=== PATIENT | female | born 1970 | race African-American/Black ===

== ENCOUNTER 2019-05-23 18:58 | Inpatient (IN) | payer MEDICAID ==
[~2019-05-23] VITALS: Ht 162.6 cm; Wt 68.6 kg
[~2019-05-23 18:58] MED LIST: A20IH1 IH; ACET-784 PO; AUD NEB; BISA-72 PO; CARV12.530 PO; FAMO10VI2 IV; FURO20 PO; FURO20TA4 PO; HEPA500014 SQ; IPRNEB IH; LEVO750P7 IV; LISI10TA7 PO; LORA2VIA33 IV; MULT-1203 PO; ONDA4VIA22 IV; PRED10TA3 PO; PRED20 PO
[2019-05-23 19:33] LABS: HEMATOCRIT 35.4 % (36-46); HEMOGLOBIN 11.2 g/dL (12.0-16.0); MEAN CORPUSCULAR HEMOGLOBIN 27.3 pg (26.0-34.0); MEAN CORPUSCULAR HGB CONC 31.5 G/dL (31.0-37.0); MEAN CORPUSCULAR VOLUME 87 fL (80-100); PLATELET COUNT (AUTO) 267 K/uL (150-450); RED BLOOD CELL COUNT(AUTO) 4.09 MIL/uL (4.00-5.20); RED CELL DISTRIBUTION WIDTH 17.8 % (11.5-14.5)
[2019-05-23 19:41] LABS: CALCIUM, TOTAL 8.9 mg/dL (8.8-10.5); CREATININE 1.29 mg/dL (0.60-1.30); POTASSIUM 3.6 mmol/L (3.5-5.1)
[2019-05-23 19:47] LABS: ALBUMIN 2.5 g/dL (3.4-5.0); BILIRUBIN,TOTAL 2.5 mg/dL (0.1-1.0); TOTAL PROTEIN, SERUM 7.6 g/dL (6.4-8.2)
[2019-05-23 20:30] LABS: BAND NEUTROPHILS % (MANUAL) 0 % (0-5)
[2019-05-23 20:31] LABS: BASOPHILS % (MANUAL) 1 % (0-2); EOSINOPHILS % (MANUAL) 1 % (1-6); LYMPHOCYTES % (MANUAL) 26 % (22-44); MONOCYTES % (MANUAL) 10 % (2-9); SEGMENTED NEUTROPHILS % 62 % (40-70)
[2019-05-23 20:33] LABS: PLATELET MORPHOLOGY COMMENT LARGE PLTS PRESENT
[2019-05-23] MEDS ORDERED: NITROGLYCERIN 50 MG/D5% WATER 250 ML IV PRN (22:15)
[2019-05-23] MEDS ORDERED: ASPIRIN 81 MG CHEWABLE TABLET PO ONE (22:15)
[2019-05-23] MEDS ORDERED: ACETAMINOPHEN 325 MG TABLET PO PRN (22:15)
[2019-05-23] MEDS ORDERED: 0.9% SODIUM CHLORIDE 10 ML SYRINGE IVP PRN (22:15)
[2019-05-23] MEDS ORDERED: ONDANSETRON HCL 4 MG/2 ML VIAL IVP PRN (22:15)
[2019-05-23] MEDS ORDERED: FUROSEMIDE 40 MG/4 ML VIAL IVP ONE (22:15)
[2019-05-23] MEDS ORDERED: IOVERSOL 320 MG/ML 100 ML VIAL ONE (22:33)
[2019-05-23] MEDS ORDERED: SODIUM CHLORIDE 0.9% 100 ML ONE (22:33)
[2019-05-24] VITALS (9 sets, daily range): BP systolic 92–160; BP diastolic 54–127
[2019-05-24] MEDS ORDERED: ALBUMIN HUMAN 25%-25GM/100ML 100 ML IV ONE (02:30)
[2019-05-24] MEDS ORDERED: ALBUTEROL SULFATE 2.5 MG/0.5 ML NEB SOLUTION NEB PRN (02:30)
[2019-05-24] MEDS ORDERED: 0.9% SODIUM CHLORIDE 10 ML SYRINGE IVP PRN (02:45)
[2019-05-24] MEDS ORDERED: ACETAMINOPHEN 325 MG TABLET PO PRN (02:45)
[2019-05-24] MEDS ORDERED: ASPIRIN 81 MG CHEWABLE TABLET PO ONE (02:45)
[2019-05-24] MEDS ORDERED: OxyCODONE HCL/ACETAMINOPHEN 5-325 MG TABLET PO PRN (02:45)
[2019-05-24] MEDS ORDERED: ONDANSETRON HCL 4 MG/2 ML VIAL IVP PRN (02:45)
[2019-05-24] MEDS ORDERED: MAGNESIUM HYDROXIDE SUSPENSION 30 ML UDCUP PO PRN (02:45)
[2019-05-24] MEDS: CARVEDILOL 12.5 MG TABLET PO SCH ×3 (02:51→21:00)
[2019-05-24] MEDS ORDERED: PNEUMOCOCCAL VACCINE POLYVALENT 0.5 ML VIAL [PPSV23] IM ONE (03:30)
[2019-05-24] MEDS ORDERED: 0.9% SODIUM CHLORIDE 5 ML NEB SOLUTION NEB ONE (04:44)
[2019-05-24] MEDS: ALBUTEROL SULFATE 2.5 MG/0.5 ML NEB SOLUTION NEB SCH ×3 (08:38→20:06)
[2019-05-24] MEDS: IPRATROPIUM BROMIDE 0.5 MG/2.5 ML NEB SOLUTION NEB SCH ×3 (08:38→20:06)
[2019-05-24] MEDS: DOCUSATE SODIUM 100 MG CAPSULE PO SCH ×2 (09:00→21:00)
[2019-05-24] MEDS ORDERED: FUROSEMIDE 40 MG/4 ML VIAL IVP SCH (09:00)
[2019-05-24] MEDS ORDERED: LISINOPRIL 10 MG TABLET PO SCH (09:00)
[2019-05-24] MEDS ORDERED: HydrALAZINE HCL 20 MG/ML VIAL IVP PRN (09:15)
[2019-05-24] MEDS: FAMOTIDINE 10 MG/ML 2 ML VIAL IVP SCH (09:35)
[2019-05-24 13:00] LABS: AMPHET/METH SCREEN,URINE NEGATIVE (NEGATIVE); BARBITURATE SCREEN, URINE NEGATIVE (NEGATIVE); BENZODIAZEPINES SCREEN,URINE NEGATIVE (NEGATIVE); CANNABINOID SCREEN,URINE NEGATIVE (NEGATIVE); COCAINE SCREEN,URINE NEGATIVE (NEGATIVE); METHADONE SCREEN, URINE NEGATIVE (NEGATIVE); OPIATE SCREEN,URINE NEGATIVE (NEGATIVE)
[2019-05-24 13:09] LABS: PHENCYCLIDINE SCREEN,URINE NEGATIVE (NEGATIVE)
[2019-05-24] MEDS: FUROSEMIDE 40 MG/4 ML VIAL IVP SCH ×2 (16:20→22:57)
[2019-05-24] MEDS: OxyCODONE HCL/ACETAMINOPHEN 5-325 MG TABLET PO PRN ×2 (18:22→22:57)
[2019-05-25] VITALS (7 sets, daily range): BP systolic 98–138; BP diastolic 54–102
[2019-05-25] MEDS: IPRATROPIUM BROMIDE 0.5 MG/2.5 ML NEB SOLUTION NEB SCH ×4 (02:24→19:49)
[2019-05-25] MEDS: ALBUTEROL SULFATE 2.5 MG/0.5 ML NEB SOLUTION NEB SCH ×4 (02:24→19:49)
[2019-05-25 04:57] LABS: BASOPHILS % (AUTO) 0.4 % (0.0-2.0); HEMOGLOBIN 10.3 g/dL (12.0-16.0); LYMPHOCYTES # (AUTO) 1.4 K/uL (1.0-4.8); LYMPHOCYTES % (AUTO) 22.9 % (22.0-44.0); MEAN CORPUSCULAR HEMOGLOBIN 27.9 pg (26.0-34.0); MEAN CORPUSCULAR VOLUME 87 fL (80-100); MONOCYTES # (AUTO) 0.5 K/uL (0.1-1.0); MONOCYTES % (AUTO) 8.2 % (2.0-9.0); NEUTROPHILS # (AUTO) 4.1 K/uL (1.8-7.7); NEUTROPHILS % (AUTO) 66.5 % (40.0-70.0); PLATELET COUNT (AUTO) 205 K/uL (150-450); RED BLOOD CELL COUNT(AUTO) 3.68 MIL/uL (4.00-5.20); RED CELL DISTRIBUTION WIDTH 17.5 % (11.5-14.5)
[2019-05-25 05:08] LABS: ANION GAP 6 mmol/L (8-16); CALCIUM, TOTAL 8.6 mg/dL (8.8-10.5); CARBON DIOXIDE 30 mmol/L (22-29); CHLORIDE 96 mmol/L (98-107); CREATININE 1.03 mg/dL (0.60-1.30); GLOMERULAR FILTR. RATE CALC > 60 mL/min (>60); GLUCOSE,RANDOM 81 mg/dL (70-110); POTASSIUM 3.4 mmol/L (3.5-5.1); SODIUM SERUM 132 mmol/L (136-145); UREA NITROGEN, BLOOD 27 mg/dL (7-18)
[2019-05-25] MEDS: CARVEDILOL 12.5 MG TABLET PO SCH ×2 (07:42→21:13)
[2019-05-25] MEDS: FUROSEMIDE 40 MG/4 ML VIAL IVP SCH ×2 (07:42→17:01)
[2019-05-25] MEDS: FAMOTIDINE 10 MG/ML 2 ML VIAL IVP SCH (07:42)
[2019-05-25] MEDS: DOCUSATE SODIUM 100 MG CAPSULE PO SCH ×2 (07:43→21:13)
[2019-05-25] MEDS: LISINOPRIL 20 MG TABLET PO SCH (07:43)
[2019-05-25] MEDS ORDERED: POTASSIUM CHL 10 MEQ/WATER 50 ML IV PRN (13:30)
[2019-05-25] MEDS ORDERED: POTASSIUM CHLORIDE 10% 40 MEQ/30 ML LIQUID UDCUP PO PRN (13:30)
[2019-05-25] MEDS ORDERED: POTASSIUM CHLORIDE 20 MEQ ER TABLET PO PRN (13:30)
[2019-05-25 14:05] LABS: INR 1.4 (0.9-1.1); PROTHROMBIN TIME 14.6 SEC (9.4-11.6)
[2019-05-25] MEDS: SPIRONOLACTONE 50 MG TABLET PO SCH (21:13)
[2019-05-26] MEDS: FUROSEMIDE 40 MG/4 ML VIAL IVP SCH (00:11)
[2019-05-26] MEDS: ALBUTEROL SULFATE 2.5 MG/0.5 ML NEB SOLUTION NEB SCH ×4 (02:25→20:09)
[2019-05-26] MEDS: IPRATROPIUM BROMIDE 0.5 MG/2.5 ML NEB SOLUTION NEB SCH ×4 (02:25→20:09)
[2019-05-26 03:49] VITALS: BP 97/52
[2019-05-26 06:56] LABS: BASOPHILS % (AUTO) 0.4 % (0.0-2.0); EOSINOPHILS % (AUTO) 0.6 % (1.0-6.0); HEMATOCRIT 32.2 % (36-46); HEMOGLOBIN 10.3 g/dL (12.0-16.0); LYMPHOCYTES # (AUTO) 0.8 K/uL (1.0-4.8); LYMPHOCYTES % (AUTO) 11.7 % (22.0-44.0); MEAN CORPUSCULAR HEMOGLOBIN 27.5 pg (26.0-34.0); MEAN CORPUSCULAR HGB CONC 31.9 G/dL (31.0-37.0); MEAN CORPUSCULAR VOLUME 86 fL (80-100); MONOCYTES # (AUTO) 0.5 K/uL (0.1-1.0); MONOCYTES % (AUTO) 7.9 % (2.0-9.0); NEUTROPHILS # (AUTO) 5.3 K/uL (1.8-7.7); NEUTROPHILS % (AUTO) 79.4 % (40.0-70.0); PLATELET COUNT (AUTO) 212 K/uL (150-450); RED BLOOD CELL COUNT(AUTO) 3.73 MIL/uL (4.00-5.20); RED CELL DISTRIBUTION WIDTH 17.4 % (11.5-14.5)
[2019-05-26 07:10] VITALS: BP 107/62
[2019-05-26 07:29] LABS: ANION GAP 9 mmol/L (8-16); CARBON DIOXIDE 30 mmol/L (22-29); CHLORIDE 96 mmol/L (98-107); CREATININE 1.03 mg/dL (0.60-1.30); GLOMERULAR FILTR. RATE CALC > 60 mL/min (>60); GLUCOSE,RANDOM 100 mg/dL (70-110); POTASSIUM 3.2 mmol/L (3.5-5.1); SODIUM SERUM 135 mmol/L (136-145); UREA NITROGEN, BLOOD 28 mg/dL (7-18)
[2019-05-26 11:07] LABS: SPECIMENTYPE,BODY FLUID THORACENTESIS
[2019-05-26] MEDS: DOCUSATE SODIUM 100 MG CAPSULE PO SCH ×2 (11:20→20:40)
[2019-05-26] MEDS: FAMOTIDINE 10 MG/ML 2 ML VIAL IVP SCH (11:22)
[2019-05-26] MEDS: SPIRONOLACTONE 50 MG TABLET PO SCH ×2 (11:22→21:00)
[2019-05-26] MEDS: CARVEDILOL 12.5 MG TABLET PO SCH ×2 (11:22→21:00)
[2019-05-26] MEDS: LISINOPRIL 20 MG TABLET PO SCH (11:22)
[2019-05-26 12:00] VITALS: BP 104/66
[2019-05-26 12:59] LABS: APPEARANCE,SPUN,BODY FLUID CLEAR (CLEAR); APPEARANCE,UNSPUN,BODY FLUID CLOUDY (CLEAR); COLOR,BODY FLUID YELLOW (LT YELLOW); TOTAL VOLUME,BODY FLUID 430 mL; WBC, BODY FLUID 62.5 /cu. mm.
[2019-05-26 13:00] LABS: BASOPHILS,BODY FLUID 0 %; EOSINOPHILS,BF (ANAL) 0 %; MONOCYTES,BODY FLUID 3 %; OTHER CELLS,BODY FLUID 3
[2019-05-26 13:30] LABS: NEUTROPHILS,BODY FLUID 8 %
[2019-05-26 13:31] LABS: LYMPHOCYTES,BODY FLUID 86 %
[2019-05-26 15:08] VITALS: BP 94/54
[2019-05-26] MEDS ORDERED: POTASSIUM CHLORIDE 20 MEQ ER TABLET PO PRN ×2 (18:45)
[2019-05-26] MEDS ORDERED: POTASSIUM CHL 10 MEQ/WATER 50 ML IV PRN (18:45)
[2019-05-26 20:02] VITALS: BP 95/56
[2019-05-27 00:04] VITALS: BP 98/62
[2019-05-27] MEDS: ALBUTEROL SULFATE 2.5 MG/0.5 ML NEB SOLUTION NEB SCH ×3 (02:41→14:00)
[2019-05-27] MEDS: IPRATROPIUM BROMIDE 0.5 MG/2.5 ML NEB SOLUTION NEB SCH ×3 (02:41→14:00)
[2019-05-27 04:24] VITALS: BP 103/70
[2019-05-27 07:00] LABS: ANION GAP 5 mmol/L (8-16); CARBON DIOXIDE 30 mmol/L (22-29); CHLORIDE 99 mmol/L (98-107); CREATININE 0.96 mg/dL (0.60-1.30); GLOMERULAR FILTR. RATE CALC > 60 mL/min (>60); GLUCOSE,RANDOM 148 mg/dL (70-110); POTASSIUM 3.8 mmol/L (3.5-5.1); SODIUM SERUM 134 mmol/L (136-145); UREA NITROGEN, BLOOD 20 mg/dL (7-18)
[2019-05-27 07:48] VITALS: BP 104/73
[2019-05-27] MEDS ORDERED: FUROSEMIDE 40 MG/4 ML VIAL IVP SCH (08:00)
[2019-05-27 08:49] VITALS: BP 115/74
[2019-05-27] MEDS: DOCUSATE SODIUM 100 MG CAPSULE PO SCH (09:00)
[2019-05-27] MEDS: SPIRONOLACTONE 50 MG TABLET PO SCH (09:49)
[2019-05-27] MEDS: CARVEDILOL 12.5 MG TABLET PO SCH (09:49)
[2019-05-27] MEDS: FAMOTIDINE 10 MG/ML 2 ML VIAL IVP SCH (09:50)
[2019-05-27 11:51] VITALS: BP 106/62
[2019-05-27] MEDS ORDERED: SPIR50 PO (11:53)
[2019-05-27] MEDS: LISINOPRIL 20 MG TABLET PO SCH (13:29)
[2019-05-27 13:30] VITALS: BP 143/67
[2019-05-27] MEDS ORDERED: MUPIROCIN CALCIUM 2% 22 GM OINTMENT NASAL SCH (13:45)
== END 2019-05-27 15:30 | disposition home or self-care (01) | DRG 194 ==
LOC: EMS 18:59 → ICU 05-24 01:30 → 5N 05-25 15:25
PROVIDERS: ADMIT Internal Medicine; ATTEND Internal Medicine
PROC: 3E0234Z Introduction of Serum, Toxoid and Vaccine into Muscle, Percutaneous Approach (ICD-10-PCS; principal; 2019-05-24)
PROC: 0W9930Z Drainage of Right Pleural Cavity with Drainage Device, Percutaneous Approach (ICD-10-PCS; 2019-05-26)
DX: I13.0 Hypertensive heart and chronic kidney disease with heart failure and stage 1 through stage 4 chronic kidney disease, or unspecified chronic kidney disease (principal); J91.8 Pleural effusion in other conditions classified elsewhere; D46.22 Refractory anemia with excess of blasts 2; E44.0 Moderate protein-calorie malnutrition; R18.8 Other ascites; E87.1 Hypo-osmolality and hyponatremia; I42.0 Dilated cardiomyopathy; I50.23 Acute on chronic systolic (congestive) heart failure; I42.7 Cardiomyopathy due to drug and external agent; T43.625A Adverse effect of amphetamines, initial encounter; E87.6 Hypokalemia; I34.0 Nonrheumatic mitral (valve) insufficiency; R09.02 Hypoxemia; R00.0 Tachycardia, unspecified; R06.03 Acute respiratory distress; K74.60 Unspecified cirrhosis of liver; F17.210 Nicotine dependence, cigarettes, uncomplicated; J45.909 Unspecified asthma, uncomplicated; N18.9 Chronic kidney disease, unspecified; Z79.899 Other long term (current) drug therapy; I25.2 Old myocardial infarction; Z80.3 Family history of malignant neoplasm of breast; Z98.51 Tubal ligation status; Z23 Encounter for immunization; Z68.26 Body mass index [BMI] 26.0-26.9, adult; Z88.0 Allergy status to penicillin; Y92.89 Other specified places as the place of occurrence of the external cause
CPT/HCPCS: 32555; 74177; 76942; 80307; 82465; 82945; 83615; 83986; 84132; 84157; 87015; 87070; 87081; 87101; 87205; 87206; 89051; 90732; 93005; 93306; 94640; 99291; G0378; J1940; J3490; J7050; P9046

== ENCOUNTER 2019-07-09 23:16 | Inpatient (IN) | payer MEDICAID ==
[~2019-07-09] VITALS: Ht 170.2 cm; Wt 70.0 kg
[~2019-07-09 23:16] MED LIST changes: -A20IH1 IH; -ACET-784 PO; -BISA-72 PO; -FAMO10VI2 IV; -FURO20TA4 PO; -HEPA500014 SQ; -LEVO750P7 IV; -LORA2VIA33 IV; -MULT-1203 PO; -ONDA4VIA22 IV; -PRED10TA3 PO; -PRED20 PO; +SPIR50 PO
[2019-07-09] MEDS ORDERED: 0.9% SODIUM CHLORIDE 5 ML NEB SOLUTION NEB ONE (23:28)
[2019-07-09] MEDS ORDERED: MethylPREDNISolone SOD SUCC 125 MG/2 ML VIAL ONE (23:28)
[2019-07-09] MEDS ORDERED: LORazepam 2 MG/ML VIAL IVP ONE (23:30)
[2019-07-09] MEDS ORDERED: ALBUTEROL SULFATE 5 MG/ML 20 ML NEB SOLN [BULK] NEB ONE (23:30)
[2019-07-09] MEDS ORDERED: SUCCINYLCHOLINE CHLORIDE 20 MG/ML 10 ML VIAL ONE (23:41)
[2019-07-09] MEDS ORDERED: RAPID SEQUENCE KIT [RSI] 1 EACH KIT ONE (23:41)
[2019-07-09 23:55] LABS: ABG A-A DIFF O2 598.3 mmHg (10-20.0); ABG BASE EXCESS -11.6 mmol/L (-2.0-3.0); ABG CARBOXYHEMOGLOBIN 1.2 % (0.0-1.5); ABG HCO3 16.6 mmol/L (22.0-26.0); ABG METHEMOGLOBIN 0.3 % (0.0-1.5); ABG OXYGEN CONTENT 16.3 mL/dL (15.0-23.0); ABG OXYGEN SATURATION 96.1 % (95.0-98.0); ABG OXYHEMOGLOBIN 94.7 % (94.0-100.0); ABG PCO2 24 mmHg (35-45); ABG PH 7.376 (7.35-7.450); ABG TOTAL HEMOGLOBIN 12.2 G/dL (12.0-18.0); PO2, ARTERIAL BG 91.2 mmHg (88.0-96.0); SOURCE, BLOOD GAS ARTERIAL; TEMPERATURE, FAHRENHEIT, BG 98.5 FAHREN (96.0-98.6)
[2019-07-09 23:56] LABS: O2 DEVICE,BLOOD GAS BIPAP (ROOM AIR); SITE, BLOOD GAS RT RADIAL
[2019-07-10] MEDS ORDERED: SODIUM CHLORIDE 0.9% 1,000 ML ONE (00:19)
[2019-07-10] MEDS ORDERED: PROPOFOL 1000 MG/ISO-OSM 100 ML IV ONE (00:29)
[2019-07-10 00:39] LABS: BASOPHILS % (AUTO) 0.3 % (0.0-2.0); EOSINOPHILS % (AUTO) 0 % (1.0-6.0); HEMATOCRIT 36.1 % (36-46); HEMOGLOBIN 11.4 g/dL (12.0-16.0); LYMPHOCYTES # (AUTO) 1.4 K/uL (1.0-4.8); LYMPHOCYTES % (AUTO) 17.2 % (22.0-44.0); MEAN CORPUSCULAR HEMOGLOBIN 26.5 pg (26.0-34.0); MEAN CORPUSCULAR HGB CONC 31.6 G/dL (31.0-37.0); MEAN CORPUSCULAR VOLUME 84 fL (80-100); MONOCYTES # (AUTO) 0.6 K/uL (0.1-1.0); NEUTROPHILS % (AUTO) 74.5 % (40.0-70.0); PLATELET COUNT (AUTO) 223 K/uL (150-450); RED CELL DISTRIBUTION WIDTH 18.9 % (11.5-14.5)
[2019-07-10] MEDS ORDERED: LEVOFLOXACIN 500 MG/D5% WATER 100 ML IV ONE (00:45)
[2019-07-10 00:51] LABS: INR 1.9 (0.9-1.1); PROTHROMBIN TIME 19.4 SEC (9.4-11.6)
[2019-07-10 00:57] LABS: APPEARANCE,URINE CLOUDY (CLEAR); BILIRUBIN,URINE PRELIM. POSITIVE (NEGATIVE); GLUCOSE, URINE (UA) NEGATIVE (NEGATIVE); KETONES,URINE NEGATIVE (NEGATIVE); LEUKOCYTE ESTERASE ,URINE NEGATIVE (NEGATIVE); NITRATE,URINE NEGATIVE (NEGATIVE); OCCULT BLOOD,URINE NEGATIVE (NEGATIVE); PROTEIN,URINE SEE CONFIRM (NEGATIVE)
[2019-07-10] MEDS ORDERED: PROPOFOL 1000 MG/ISO-OSM 100 ML IV PRN (01:00)
[2019-07-10] MEDS ORDERED: MethylPREDNISolone SOD SUCC 125 MG/2 ML VIAL IVP ONE (01:00)
[2019-07-10] MEDS ORDERED: FUROSEMIDE 40 MG/4 ML VIAL IVP ONE ×3 (01:00→04:15)
[2019-07-10 01:01] LABS: ALANINE AMINOTRANSFERASE 36 U/L (12-78); ALBUMIN 2.6 g/dL (3.4-5.0); ALKALINE PHOSPHATASE 226 U/L (46-116); ANION GAP 17 mmol/L (8-16); ASPARTATE AMINOTRANSFERASE 64 U/L (15-37); BILIRUBIN,TOTAL 3.7 mg/dL (0.1-1.0); CALCIUM, TOTAL 8.7 mg/dL (8.8-10.5); CARBON DIOXIDE 20 mmol/L (22-29); CHLORIDE 97 mmol/L (98-107); CREATININE 1.83 mg/dL (0.60-1.30); GLOMERULAR FILTR. RATE CALC 36 mL/min (>60); HCG,QUANTITATIVE < 1 mIU/mL (0-6); SODIUM SERUM 134 mmol/L (136-145); TOTAL PROTEIN, SERUM 7.9 g/dL (6.4-8.2); UREA NITROGEN, BLOOD 44 mg/dL (7-18)
[2019-07-10 01:02] LABS: LACTIC ACID 8.7 mmol/L (0.4-2.0)
[2019-07-10 01:03] LABS: B-TYPE NATRIURETIC PEPTIDE > 5000 pg/mL (0-100); GLUCOSE,RANDOM 38 mg/dL (70-110)
[2019-07-10 01:07] LABS: SULFOSALICYLIC ACID,URINE 1+ (Negative)
[2019-07-10 01:07] LABS: SOURCE, BLOOD GAS ARTERIAL; TEMPERATURE, FAHRENHEIT, BG 98.6 FAHREN (96.0-98.6)
[2019-07-10 01:08] LABS: AMORPHOUS SEDIMENT,UR Few /LPF (None Seen); BACTERIA,URINE Few /HPF (None Seen); RBC,URINE 0-2 /HPF (0-2); SQUAMOUS EPITHELIAL CELL,UR Few /LPF (None Seen)
[2019-07-10] MEDS ORDERED: DEXTROSE 50%-WATER 25 GM/50 ML SYRINGE IVP ONE (01:15)
[2019-07-10] MEDS ORDERED: SODIUM CHLORIDE 0.9% 1,000 ML IV ONE ×2 (01:15)
[2019-07-10] MEDS ORDERED: 0.9% SODIUM CHLORIDE 5 ML NEB SOLUTION NEB ONE (01:21)
[2019-07-10 01:28] LABS: ABG CARBOXYHEMOGLOBIN 0.8 % (0.0-1.5); ABG HCO3 12.9 mmol/L (22.0-26.0); ABG METHEMOGLOBIN 0.1 % (0.0-1.5); ABG OXYGEN CONTENT 11.5 mL/dL (15.0-23.0); ABG OXYHEMOGLOBIN 70.3 % (94.0-100.0); ABG PCO2 47 mmHg (35-45); ABG TOTAL HEMOGLOBIN 11.6 G/dL (12.0-18.0); PO2, ARTERIAL BG 55.7 mmHg (88.0-96.0)
[2019-07-10] MEDS ORDERED: DEXTROSE 5%-0.9% SODIUM CHL 1,000 ML IV ONE ×2 (01:30→02:30)
[2019-07-10 01:32] LABS: ABG PH 7.107 (7.35-7.450)
[2019-07-10] MEDS ORDERED: SODIUM BICARBONATE [ADULT] 8.4% 50 MEQ/50 ML SYRINGE IVP ONE ×4 (01:32→19:06)
[2019-07-10 01:33] LABS: ABG OXYGEN SATURATION 70.9 % (95.0-98.0); O2 DEVICE,BLOOD GAS VENTILATOR (ROOM AIR); PEEP,BG 5 cm H2O; SITE, BLOOD GAS RT FEMORAL; VT, ABG 400 ml
[2019-07-10 01:48] LABS: GLUCOSE,POINT OF CARE 128 MG/DL (70-110)
[2019-07-10 01:48] LABS: GLUCOSE,POINT OF CARE 19 MG/DL (70-110)
[2019-07-10] MEDS ORDERED: NOREPINEPHRINE 4 MG/D5%-WATER 250 ML IV ONE (01:55)
[2019-07-10] MEDS ORDERED: AZITHROMYCIN 500 MG/NS 250 ML IV ONE (02:15)
[2019-07-10] MEDS ORDERED: NOREPINEPHRINE 4 MG/D5%-WATER 250 ML IV PRN ×2 (03:24→07:05)
[2019-07-10] MEDS: DOPamine HCL 400 MG/D5%-WATER 250 ML IV PRN ×2 (03:30→09:55)
[2019-07-10 03:55] LABS: GLUCOSE,POINT OF CARE 153 MG/DL (70-110)
[2019-07-10] MEDS ORDERED: MIDAZOLAM HCL 5 MG/ML VIAL ONE (04:32)
[2019-07-10 04:39] LABS: CALCIUM, TOTAL 7.9 mg/dL (8.8-10.5); CREATININE 1.91 mg/dL (0.60-1.30); POTASSIUM 3.9 mmol/L (3.5-5.1)
[2019-07-10 04:54] LABS: LACTIC ACID 8.5 mmol/L (0.4-2.0)
[2019-07-10] MEDS ORDERED: CALCIUM GLUCONATE 100 MG/ML 10 ML IVP ONE ×2 (05:14→05:15)
[2019-07-10] MEDS ORDERED: DEXTROSE 5%-WATER 50 ML IV ONE (05:15)
[2019-07-10] MEDS ORDERED: VANCOMYCIN HCL 1 GM/D5% WATER 200 ML IV ONE ×2 (05:15→19:00)
[2019-07-10 05:38] LABS: ABG A-A DIFF O2 461.8 mmHg (10-20.0); ABG BASE EXCESS -14.9 mmol/L (-2.0-3.0); ABG CARBOXYHEMOGLOBIN 0.3 % (0.0-1.5); ABG METHEMOGLOBIN 0.4 % (0.0-1.5); ABG OXYGEN CONTENT 16.7 mL/dL (15.0-23.0); ABG OXYGEN SATURATION 99.4 % (95.0-98.0); ABG OXYHEMOGLOBIN 98.7 % (94.0-100.0); ABG PCO2 29 mmHg (35-45); ABG PH 7.247 (7.35-7.450); ABG TOTAL HEMOGLOBIN 11.7 G/dL (12.0-18.0); PO2, ARTERIAL BG 222.2 mmHg (88.0-96.0); SOURCE, BLOOD GAS ARTERIAL; TEMPERATURE, FAHRENHEIT, BG 98.6 FAHREN (96.0-98.6)
[2019-07-10 05:39] LABS: O2 DEVICE,BLOOD GAS VENTILATOR (ROOM AIR); PEEP,BG 10 cm H2O; SITE, BLOOD GAS ARTERIAL LINE; VT, ABG 400 ml
[2019-07-10] MEDS ORDERED: MIDAZOLAM HCL 5 MG/ML VIAL IVP ONE (06:30)
[2019-07-10] MEDS ORDERED: PHENYLEPHRINE 200 MG/D5%-WATER 250 ML IV PRN ×2 (06:39→18:15)
[2019-07-10] MEDS ORDERED: MAGNESIUM HYDROXIDE SUSPENSION 30 ML UDCUP PO PRN (07:15)
[2019-07-10] MEDS ORDERED: HYDROCODONE/ACETAMINOPHEN 5-325 MG TABLET PO PRN (07:15)
[2019-07-10] MEDS ORDERED: ALBUTEROL SULFATE 2.5 MG/0.5 ML NEB SOLUTION NEB PRN (07:15)
[2019-07-10] MEDS ORDERED: ZOLPIDEM TARTRATE 5 MG TABLET PO PRN (07:15)
[2019-07-10] MEDS ORDERED: MORPHINE SULFATE 2 MG/ML SYRINGE IVP PRN (07:15)
[2019-07-10] MEDS ORDERED: BISACODYL 10 MG RECTAL RECTAL SUPPOSITORY PR PRN (07:15)
[2019-07-10] MEDS ORDERED: ACETAMINOPHEN 325 MG TABLET PO PRN (07:15)
[2019-07-10] MEDS ORDERED: ONDANSETRON HCL 4 MG/2 ML VIAL IVP PRN (07:15)
[2019-07-10] MEDS ORDERED: CLINDAMYCIN 600 MG/D5% WATER 50 ML IV ONE (07:15)
[2019-07-10] MEDS ORDERED: IPRATROPIUM BROMIDE 0.5 MG/2.5 ML NEB SOLUTION NEB PRN (07:15)
[2019-07-10 07:43] LABS: GLUCOSE,POINT OF CARE 114 MG/DL (70-110)
[2019-07-10 08:00] VITALS: BP 89/66
[2019-07-10] MEDS: IPRATROPIUM BROMIDE 0.5 MG/2.5 ML NEB SOLUTION NEB SCH ×2 (08:00→13:57)
[2019-07-10] MEDS: ALBUTEROL SULFATE 2.5 MG/0.5 ML NEB SOLUTION NEB SCH ×2 (08:00→13:57)
[2019-07-10] MEDS ORDERED: VASOPRESSIN 40 UNITS in DEXTROSE 5%-WATER 98 ML IV PRN (08:37)
[2019-07-10] MEDS ORDERED: GuaiFENesin SR 600 MG ER TABLET PO SCH (09:00)
[2019-07-10] MEDS ORDERED: FUROSEMIDE 20 MG/2 ML VIAL IVP SCH (09:00)
[2019-07-10] MEDS ORDERED: PANTOPRAZOLE SODIUM 40 MG DR TABLET PO SCH (09:00)
[2019-07-10] MEDS ORDERED: BENZONATATE 100 MG CAPSULE PO SCH (09:00)
[2019-07-10] MEDS ORDERED: DOCUSATE SODIUM 100 MG CAPSULE PO SCH (09:00)
[2019-07-10] MEDS ORDERED: NOREPINEPHRINE BITARTRATE 16 MG in DEXTROSE 5%-WATER 234 ML IV PRN (09:30)
[2019-07-10 09:44] LABS: AMPHET/METH SCREEN,URINE POSITIVE (NEGATIVE); BARBITURATE SCREEN, URINE NEGATIVE (NEGATIVE); BENZODIAZEPINES SCREEN,URINE NEGATIVE (NEGATIVE); CANNABINOID SCREEN,URINE POSITIVE (NEGATIVE); COCAINE SCREEN,URINE NEGATIVE (NEGATIVE); METHADONE SCREEN, URINE NEGATIVE (NEGATIVE); OPIATE SCREEN,URINE POSITIVE (NEGATIVE); PHENCYCLIDINE SCREEN,URINE NEGATIVE (NEGATIVE)
[2019-07-10] MEDS ORDERED: *CLINICAL-CEFEPIME DOSING CLINICAL SCH (10:45)
[2019-07-10] MEDS: HEPARIN SODIUM,PORCINE 5,000 UNITS/ML VIAL SQ SCH ×2 (11:09→16:00)
[2019-07-10 12:00] VITALS: BP 86/70
[2019-07-10] MEDS ORDERED: MethylPREDNISolone SOD SUCC 125 MG/2 ML VIAL IVP SCH (12:00)
[2019-07-10] MEDS ORDERED: VANCOMYCIN HCL 1.5 GM in DEXTROSE 5%-WATER 250 ML IV ONE (12:00)
[2019-07-10] MEDS ORDERED: CEFEPIME HCL 2 GM in DEXTROSE 5%-WATER 50 ML IV SCH (12:00)
[2019-07-10] MEDS ORDERED: ETOMIDATE 2 MG/ML 10 ML VIAL IV ONE (12:15)
[2019-07-10] MEDS ORDERED: VECURONIUM BROMIDE 10 MG/VIAL IV ONE (12:15)
[2019-07-10] MEDS ORDERED: LIDOCAINE/PF 2% 5 ML SYRINGE IVP ONE (12:15)
[2019-07-10] MEDS: HYDROCORTISONE SOD SUCC 100 MG/2 ML VIAL IVP SCH ×2 (12:37→17:44)
[2019-07-10] MEDS: MetroNIDAZOLE 500 MG/NACL 100 ML IV SCH ×2 (12:37→17:44)
[2019-07-10 14:38] LABS: ABG A-A DIFF O2 624.8 mmHg (10-20.0); ABG BASE EXCESS -27.8 mmol/L (-2.0-3.0); ABG CARBOXYHEMOGLOBIN 0.5 % (0.0-1.5); ABG METHEMOGLOBIN 0.3 % (0.0-1.5); ABG OXYGEN CONTENT 8.8 mL/dL (15.0-23.0); ABG OXYHEMOGLOBIN 52.2 % (94.0-100.0); ABG PCO2 45 mmHg (35-45); ABG TOTAL HEMOGLOBIN 11.9 G/dL (12.0-18.0); PO2, ARTERIAL BG 44.1 mmHg (88.0-96.0); SOURCE, BLOOD GAS ARTERIAL; TEMPERATURE, FAHRENHEIT, BG 97.7 FAHREN (96.0-98.6)
[2019-07-10 14:53] LABS: ABG HCO3 5.1 mmol/L (22.0-26.0); ABG OXYGEN SATURATION 52.6 % (95.0-98.0); ABG PH 6.796 (7.35-7.450); O2 DEVICE,BLOOD GAS VENTILATOR (ROOM AIR); PEEP,BG 10 cm H2O; SITE, BLOOD GAS ARTERIAL LINE; VT, ABG 400 ml
[2019-07-10] MEDS ORDERED: EPINEPHrine 2 MG in DEXTROSE 5%-WATER 248 ML IV PRN (15:15)
[2019-07-10] MEDS ORDERED: SODIUM BICARBONATE 150 MEQ in DEXTROSE 5%-WATER 1,000 ML IV SCH (15:15)
[2019-07-10 16:00] VITALS: BP 95/75
[2019-07-10] MEDS ORDERED: CLINDAMYCIN 600 MG/D5% WATER 50 ML IV SCH (16:00)
[2019-07-10] MEDS ORDERED: DOPamine HCL 400 MG/D5%-WATER 250 ML IV PRN (16:05)
[2019-07-10 16:12] VITALS: BP 98/74
[2019-07-10] MEDS ORDERED: SODIUM CHLORIDE 0.9% 250 ML IV ONE (17:49)
[2019-07-10] MEDS ORDERED: NOREPINEPHRINE 4 MG/D5%-WATER 0 ML IV ONE (18:28)
[2019-07-10] MEDS ORDERED: VANCOMYCIN HCL 750 MG in DEXTROSE 5%-WATER 250 ML IV ONE (19:00)
[2019-07-10] MEDS ORDERED: EPINEPHrine 1:10,000 [1 MG/10 ML] SYRINGE ONE (19:04)
[2019-07-10] MEDS ORDERED: EPINEPHrine 1:10,000 [1 MG/10 ML] SYRINGE IVP ONE (19:06)
[2019-07-10] MEDS ORDERED: FAMOTIDINE 10 MG/ML 2 ML VIAL IVP SCH (21:00)
[2019-07-11] MEDS ORDERED: VANCOMYCIN HCL 1.25 GM in DEXTROSE 5%-WATER 250 ML IV SCH (07:00)
== END 2019-07-10 19:07 | disposition expired | DRG 720 ==
LOC: EMS 23:18 → ICU 07-10 09:00
PROVIDERS: ADMIT Internal Medicine; ATTEND Internal Medicine
PROC: 5A09357 Assistance with Respiratory Ventilation, Less than 24 Consecutive Hours, Continuous Positive Airway Pressure (ICD-10-PCS; principal; 2019-07-10)
PROC: 5A1935Z Respiratory Ventilation, Less than 24 Consecutive Hours (ICD-10-PCS; 2019-07-10)
PROC: 0BH17EZ Insertion of Endotracheal Airway into Trachea, Via Natural or Artificial Opening (ICD-10-PCS; 2019-07-10)
PROC: 06HY33Z Insertion of Infusion Device into Lower Vein, Percutaneous Approach (ICD-10-PCS; 2019-07-10)
DX: A41.9 Sepsis, unspecified organism (principal); I46.9 Cardiac arrest, cause unspecified; J96.01 Acute respiratory failure with hypoxia; N17.0 Acute kidney failure with tubular necrosis; J69.0 Pneumonitis due to inhalation of food and vomit; J44.1 Chronic obstructive pulmonary disease with (acute) exacerbation; R57.9 Shock, unspecified; G93.40 Encephalopathy, unspecified; J45.901 Unspecified asthma with (acute) exacerbation; I42.8 Other cardiomyopathies; E87.4 Mixed disorder of acid-base balance; I50.43 Acute on chronic combined systolic (congestive) and diastolic (congestive) heart failure; K74.60 Unspecified cirrhosis of liver; F19.10 Other psychoactive substance abuse, uncomplicated; I13.0 Hypertensive heart and chronic kidney disease with heart failure and stage 1 through stage 4 chronic kidney disease, or unspecified chronic kidney disease; N18.9 Chronic kidney disease, unspecified; F17.210 Nicotine dependence, cigarettes, uncomplicated; Z88.0 Allergy status to penicillin; Z79.899 Other long term (current) drug therapy
CPT/HCPCS: 36600; 70450; 71250; 72192; 74150; 80307; 82805; 83605; 84145; 87040; 87070; 87081; 87205; 93005; 94002; 94003; 94640; 94644; 94645; 94660; 96365; 96375; 99291; 99292; G0378; J0171; J0330; J0456; J0610; J0692; J1265; J1644; J1720; J1940; J1956; J2060; J2250; J2370; J2704; J2930; J3370; J3490; J7030; J7042; J7050; J7060